=== PATIENT | male | born 1965 ===

== ENCOUNTER 2016-10-01 06:53 | Observation (INO) | payer MEDICAID ==
[2016-10-01] MEDS ORDERED: ceFAZolin 2 GM/DEXTROSE 100 ML IV ONE (07:09)
[2016-10-01] MEDS ORDERED: LIDOCAINE 1% 2 ML INJ ID PRN (07:09)
[2016-10-01] MEDS ORDERED: LR 1,000 ML IV ONE (07:09)
[2016-10-01] MEDS ORDERED: fentaNYL 250 MCG/5 ML INJ ONE (07:49)
[2016-10-01] MEDS ORDERED: SUCCINYLCHOLINE CHLORIDE*ANESTHESIA ONLY*200 MG/10 ML SYR IVP ONE (07:49)
[2016-10-01] MEDS ORDERED: PROPOFOL 200 MG/20 ML VIAL ONE (07:49)
--- NOTE | 2016-10-01 08:30 | PDHPUP ---
History & Physical Update H&P update statement: This history and physical update is based on an assessment of the patient which was completed after admission or registration (within 24 hours), but prior to the surgery/procedure. H&P update: H&P reviewed & patient examined, no change in patient's condition since H&P completed
[2016-10-01] MEDS ORDERED: METHYLENE BLUE 0.5% 50 MG/10 ML AMP ONE (08:40)
[2016-10-01] MEDS ORDERED: LIDO/EPI 1% **Not for Epidural 20 ML MDV ONE (08:40)
--- NOTE | 2016-10-01 08:43 | PDANEPAE ---
ANE History of Present Illness 51 year old male with Left neck mass, denies difficulty breathing when lying flat, no signs of contraleteral compression on Right side. FROM of neck, no difficulty swallowing. No neck stiffness or pain. Denies all other medical issues. No problems with heart, lungs, kidneys, thyroid. No history of smoking. He has taken all variations of acetaminophen and is not allergic to acetaminophen. He denies difficulties with general anesthesia. No issues with motion sickness. ANE Past Medical History - Cardiovascular History Hx Hypertension: No Hx Arrhythmias: No Hx Chest Pain: No Hx Coronary Artery / Peripheral Vascular Disease: No Hx CHF / Valvular Disease: No Hx Palpitations: No - Pulmonary History Hx COPD: No Hx Asthma/Reactive Airway Disease: No Hx Recent Upper Respiratory Infection: No Hx Oxygen in Use at Home: No Hx Sleep Apnea: No Sleep Apnea Screening Result - Last Documented: Negative - Neurologic History Hx Cerebrovascular Accident: No Hx Seizures: No Hx Dementia: No - Endocrine History Hx Diabetes: No - Renal History Hx Renal Disorders: No - Liver History Hx Hepatic Disorders: No - Neurological & Psychiatric Hx Hx Neurological and Psychiatric Disorders: No - Cancer History Hx Cancer: Yes Cancer History Comment: mass in L submandibular gland - Congenital Disorder History Hx Congenital Disorders: No - GI History Hx Gastrointestinal Disorders: No - Other Health History Other Health History: seasonal allergies. Pet allergy - Chronic Pain History Chronic Pain: No - Surgical History Prior Surgeries: R knee, R ankle, L ankle -corrective surgery (growth plate) age 15 ANE Review of Systems - Exercise capacity METS (RN): 4 METS ANE Patient History - Allergies Allergies/Adverse Reactions: acetaminophen [From Darvocet-N] Allergy (Verified 10/01/16 07:17) Hives propoxyphene [From Darvocet-N] Allergy (Verified 09/24/16 16:09) Hives - Home Medications Home Medications: ALPRAZolam [Xanax 0.5 MG (*)] 0.5 mg PO DAILY PRN 09/19/16 [Last Taken 09/29/16] Herbals/Supplements -Info Only 1 ea PO DAILY 09/19/16 [Last Taken 09/29/16] Ibuprofen [Motrin (*)] 200 mg PO DAILY PRN 09/19/16 [Last Taken Unknown] - NPO status NPO Since - Liquids (Date): 09/30/16 NPO Since - Liquids (Time): 17:00 NPO Since - Solids (Date): 09/30/16 NPO Since - Solids (Time): 17:00 - Smoking Hx Smoking Status: Never smoked ANE Labs/Vital Signs - Vital Signs Blood Pressure: 110/85 Heart Rate: 66 Respiratory Rate: 14 O2 Sat (%): 95 Height: 187.96 cm Weight: 97.522 kg ANE Physical Exam - Airway Neck exam: FROM Mallampati Score: Class 1 Mouth exam: normal dental/mouth exam, poor dentition - Pulmonary Pulmonary: no respiratory distress - Cardiovascular Cardiovascular: regular rate and rhythym - ASA Status ASA Status: II ANE Anesthesia Plan Anesthesia Plan: general endotracheal anesthesia Urgent/Emergent Case: Aureliano pedraza completed preop but documented later for safe timely pt care
[2016-10-01] MEDS ORDERED: HYDROmorphONE/DILAUDID 2 MG/ML INJ ONE (09:27)
[2016-10-01] MEDS ORDERED: LIDOCAINE 1% 300 MG/30 ML SDV ONE (09:34)
[2016-10-01] MEDS ORDERED: LR 500 ML IV PRN (11:59)
[2016-10-01] MEDS ORDERED: DEXAMETHASONE 4 MG/ML VIAL IVP PRN (11:59)
[2016-10-01] MEDS ORDERED: MEPERIDINE 25 MG/ML SYR IVP PRN (11:59)
[2016-10-01] MEDS ORDERED: NALOXONE HCL 0.4 MG/ML INJ IVP PRN (11:59)
[2016-10-01] MEDS ORDERED: ACETAMINOPHEN 500 MG TAB PO PRN (11:59)
[2016-10-01] MEDS ORDERED: ONDANSETRON 4 MG/2 ML VIAL IVP PRN (11:59)
--- NOTE | 2016-10-01 14:01 | POSTOPPROG ---
Post Op Note Date of Operation: 10/01/16 Surgeon: Iva Gomes Aircraft Maintenance Supervisor: Marilin whalen Anesthesia: GET(General Endotracheal) Pre-op Diagnosis: left salivary gland tumor Post-op Diagnosis: same Procedure: Left modified radical neck dissection Findings: extensive tumor involvement- including accessory nerver Inf/Abcess present in the surg proc area at time of surgery?: No EBL: 50-100 Complications: none Drains: Aaron Saldana (left neck dissection)
[2016-10-01] MEDS ORDERED: ACETAMINOPHEN 325 MG TAB PO PRN (14:07)
[2016-10-01] MEDS ORDERED: D5W 1/2 NS W/ 20 KCl/L 1,000 ML IV SCH (14:15)
[2016-10-01] MEDS ORDERED: HYDROmorphONE/DILAUDID 1 MG/ML SYR ONE ×2 (14:27→15:12)
[2016-10-01] MEDS: HYDROmorphONE/DILAUDID 1 MG/ML SYR IVP PRN ×3 (14:33→15:07)
[2016-10-01] MEDS: HYDROCODONE/APAP 5/325 TAB PO PRN ×2 (16:09→20:20)
[2016-10-01] MEDS ORDERED: ALPRAZolam 0.5 MG TAB PO PRN (16:27)
[2016-10-01] MEDS: ceFAZolin 2 GM/DEXTROSE 100 ML IV SCH (17:40)
[2016-10-01] MEDS: ONDANSETRON 4 MG/2 ML VIAL IVP PRN (18:43)
[2016-10-01] MEDS ORDERED: ALPRAZolam 0.25 MG TAB PO PRN (20:12)
[2016-10-01] MEDS: DOCUSATE SODIUM 100 MG CAP PO SCH (20:19)
[2016-10-02] MEDS: ceFAZolin 2 GM/DEXTROSE 100 ML IV SCH (00:28)
[2016-10-02 04:43] VITALS: RESP 16; TEMP 97.8; O2SAT 94
--- NOTE | 2016-10-02 04:52 | GOP ---
[f rep st] OPERATIVE REPORT DATE OF OPERATION: 10/01/2016 SURGEON: Iva Gomes MD COURT REGISTRY OFFICER: Dr. Marilin Lynn. ANESTHESIA: General endotracheal. 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 PROCEDURE PERFORMED: Left modified radical neck dissection. FINDINGS: ESTIMATED BLOOD LOSS: 100 cc. INDICATIONS: This is a 51-year-old male, who has a several-month history of enlarging neck masses i n the left neck. Biopsy was done by Interventional Radiology and found to have a salivary gland car cinoma. 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 T he patient was found to have extensive bulky disease of the lateral neck, going all the way high up to the skull base. Discussion of the options with the patient and the severity of the disease was d one, including the necessity of taking several cranial nerves including accessory and marginal marilynn bular nerve. DESCRIPTION OF PROCEDURE: After informed consent, patient was brought back to the operating room, p laced in supine position, and general endotracheal anesthesia obtained. Table was rotated 90 degree s. A utility incision was planned and injected with 10 cc of 1% lidocaine with epinephrine. Patien t was then prepped and draped in the usual fashion. A 15 blade was used to make an incision through skin and subplatysmal plane. Great auricular nerve was identified and the SCM muscle. The subplat ysmal planes were raised superiorly, all the way up to the mandible and inferiorly back to about tra pezius posteriorly. There was found to be extensive bulky disease in the level 2 and 3 areas. Star ting with level 1 at the submental region, the lymph nodes and fat pad were taken down to muscle. T his was then followed posteriorly to the submandibular gland, where the primary is located. Care wa s taken to not enter the capsule. The lingual nerve was identified and the duct to the submandibula r gland were identified, clamped, and tied. Dissection was continued using blunt and Harmonic for d issection. The hypoglossal nerve was then also identified. The dissection was then continued from anterior to posterior over the strap muscles. Because there was bulky disease along the carotid she ath and internal jugular vein, at this point, decision was made to go inferiorly to clearly identify the internal jugular vein. To do this, the SCM fascia was identified and unwrapped from the SCM fr om posterior to anterior. The accessory nerve was identified and left in place, even though it was clearly entering bulky disease of the neck. The anterior border of the SCM was then followed inferi patricia, where there was much less bulky disease. The internal jugular vein was identified. The fatty tissue in level 4 was clamped and tied continually to prevent any type of chyle leak. As the scale ne muscles were identified, the tissue was then lifted off the scalenes, taking care to not enter th e fascia, and the neck contents were then brought up superiorly. The cervical rootlets were identif ied and left in place. There was palpable disease in level 5, but at this time, was left to come ba ck to. Internal jugular vein was clearly identified and followed superiorly. There was extensive b ulky disease between levels 2 and 3. At this point, for better visualization, the lymph node dissec tion contents were transected between levels 2 and 3, and the contents from levels 3 and 4 were then able to be passed off completely. Internal jugular vein was continued to be traced superiorly. At the level of the accessory nerve exiting SCM, was unable to preserve the accessory nerve because it was clearly entering bulky disease of the neck. Therefore, the accessory nerve was transected at t his point using tenotomies, and a cuff of SCM was also taken. Tumor was able to be lifted off the S CM and with careful dissection, the bulky disease was able to be taken off the internal jugular vein . There was a clear plane between the 2 of them. There was no invasion of internal jugular vein se en. While continuing to follow the tumor of the internal jugular vein superiorly, the hypoglossal n erve was also identified. The carotid artery and carotid bulb were identified, and remained intact. The ansa cervicalis was transected; however, the dissection was then continued all the way superio rly. The mastoid tip was palpated and this was where the tumor abutted. There was a clear plane be tween the 2. Occipital artery was identified and left intact and with careful dissection, the super ior aspect of the dissection was able to be completed, and the tumor was able to be from t he skull base. The internal jugular vein was not violated at any time and aside from the accessory cranial nerve, the remainder of the cranial nerves were able to be left intact. At this point, the levels 1 and 2 were able to be removed. Lastly, level 5 was addressed. The sternocleidomastoid mus jazzmine was then completely isolated and the contents of level 5 were able to be dissected free and tomy svetlana completely. At this point, the contents of the neck, including all of levels 1 through 5 were a ble to be removed, and final hemostasis was obtained. Two #10 flat JPs were placed. The skin was t hen closed using Vicryl and Dermabond, and the drains were sutured in place using 3-0 nylon. Of not e, before closure, Valsalva was performed by Anesthesia, and no leak or air were seen. At this poin t, the patient was awakened from anesthesia,, extubated, and transferred to the PACU in stable condi tion. COMPLICATIONS: None. /[id number]/MODL
[2016-10-02] MEDS: HYDROCODONE/APAP 5/325 TAB PO PRN (05:37)
[2016-10-02] MEDS: ONDANSETRON 4 MG/2 ML VIAL IVP PRN (05:42)
--- NOTE | 2016-10-02 08:22 | SOAPPROG ---
SOAP Progress Note Assessment/Plan: Assessment/Plan: 51 yo M POD 1 s/p L MRND -anterior JOSÉ MIGUEL removed this am -continue to advance diet -progressive ambulation -HLIV -if pt is able to tolerate POs and ambulate without assistance this afternoon, we can consider d/c home with JOSÉ MIGUEL in place (if pt is comfortable with JOSÉ MIGUEL management): please page 10/02/16 08:19 Objective: Vital Signs Temp Pulse Resp BP Pulse Ox 36.6 C 68 16 117/74 94 10/02/16 04:00 10/02/16 04:00 10/02/16 04:00 10/02/16 04:00 10/02/16 04:00 10/01/16 10/02/16 10/03/16 05:59 05:59 05:59 Intake Total 2580 1427 Output Total 1565 Balance 1015 1427 Physical Exam - Physical Exam General Appearance: alert, no apparent distress EENT: other (left oral commisure with some weakness) Neck: other (incision: c/d/i. JPs with sang drainage. ) ICD10 Worksheet Patient Problems: Problems Problem Status Onset Salivary gland carcinoma Acute - ICD10 Problem Qualifiers (1) Salivary gland carcinoma
--- NOTE | 2016-10-02 09:05 | POSTANESTH ---
Post Anesthetic Evaluation Cardiovascular Status: Normal, Stable Respiratory Status: Normal, Stable Level of Consciousness/Mental Status: Can Participate in Eval Pain Control: Adequate, Prn Tx Ordered Nausea/Vomiting Control: Adequate, Prn Tx Ordered Complications Possibly Related to Anesthesia: None Noted
[2016-10-02 09:30] VITALS: BP 130/76; PULSE 67
--- NOTE | 2016-10-02 10:13 | GDS ---
[f rep st] DISCHARGE SUMMARY ADMITTING DIAGNOSIS: Left salivary gland carcinoma. HOSPITAL COURSE: This is a 51-year-old male who was admitted on 10/01/2016 for a left modified radi jace neck dissection for a submandibular gland carcinoma. The patient underwent the procedure withou t complications. He was admitted to the floor postoperatively with 2 drains in his neck. By postop day 1, patient remained afebrile and tolerating p.o. and ambulating without assistance. One of the JOSÉ MIGUEL's was removed on the morning of postop day 1. The patient was motivated to go home with the 2nd JOSÉ MIGUEL in his neck and to be removed as an outpatient and did not require any IV medications, therefor e, patient was discharged home on postop day 1, with a JOSÉ MIGUEL draining. DISPOSITION: Discharge to home. MEDICATIONS: Patient has Vicodin as needed for pain or Tylenol. ACTIVITY RESTRICTIONS: No heavy lifting or strenuous activity for 1 week. FOLLOWUP: Patient to follow up with Dr. Gomes tomorrow, 10/03/2016, for JOSÉ MIGUEL removal. No special diet requirements. /[id number]/MODL
[2016-10-02] MEDS: DOCUSATE SODIUM 100 MG CAP PO SCH (10:41)
== END 2016-10-02 10:53 | disposition home or self-care (01) ==
LOC: F3E 06:53
PROVIDERS: ADMIT Otolaryngology; ATTEND Otolaryngology
PROC: 07B20ZX Excision of Left Neck Lymphatic, Open Approach, Diagnostic (ICD-10-PCS; principal; 2016-10-01 08:30)
PROC: 0CTH0ZZ Resection of Left Submaxillary Gland, Open Approach (ICD-10-PCS; principal; 2016-10-01 08:30)
DX: C08.0 Malignant neoplasm of submandibular gland (principal); Z87.891 Personal history of nicotine dependence
CPT/HCPCS: 21558; G0378; J0330; J0690; J1170; J2405; J2704; J3010; Q9968

== ENCOUNTER 2016-10-03 18:11 | Emergency (ER) | payer MEDICAID ==
[2016-10-03 18:17] VITALS: BP 115/81; PULSE 68; RESP 16; TEMP 98.8; O2SAT 98
--- NOTE | 2016-10-03 19:07 | PDCONSULT ---
Photogrammetry Airplane Pilot Note: 51 yo M POD 2 s/p L neck dissection seen by me earlier today for drain removal. He noticed neck swelling this afternoon. No SOB or trouble swallowing. Exam: soft ballotable fluid mostly superior to the incision no cellulitis. Procedure: Needle aspiration of neck seroma 25 cc serosang fluid aspirated off without complications pressure dressing applied with jaw bra plan: d/c home close FU and to call with increased swelling and SOB pt to see me Thursday at 9am for FU
== END 2016-10-03 19:19 | disposition home or self-care (01) ==
PROC: 0H94XZZ Drainage of Neck Skin, External Approach (ICD-10-PCS; principal; 2016-10-03)
DX: L76.21 Postprocedural hemorrhage of skin and subcutaneous tissue following a dermatologic procedure (principal)